=== PATIENT | female | born 1990 | race Hispanic/Latino ===

== ENCOUNTER 2021-08-06 21:00 | Inpatient (IN) | payer MEDICAID, OTHER ==
[2021-08-06 21:46] VITALS: BMI 40.1
[2021-08-06] MEDS: Lactated Ringer's 1,000 ML IV SCH (22:13)
[2021-08-06] MEDS ORDERED: hydrALAZINE 20 MG/ML VIAL SLOW IVP PRN (23:42)
[2021-08-06] MEDS ORDERED: Ibuprofen 800 MG TAB PO PRN (23:42)
[2021-08-06] MEDS ORDERED: Butorphanol Tartrate 1 MG/ML VIAL SLOW IVP PRN (23:42)
[2021-08-06] MEDS ORDERED: Diphenoxylate HCl/Atropine Tablet PO PRN (23:42)
[2021-08-06] MEDS ORDERED: Misoprostol 200 MCG TAB PR PRN (23:42)
[2021-08-06] MEDS ORDERED: Carboprost 250 MCG/ML AMP IM PRN (23:42)
[2021-08-06] MEDS ORDERED: Ondansetron PF 4 MG/2 ML Vial IVP PRN (23:42)
[2021-08-06] MEDS ORDERED: Lidocaine 1% (PF) 30 ML VIAL SC PRN (23:42)
[2021-08-06] MEDS ORDERED: Promethazine HCl 25 MG/ML VIAL IM PRN (23:42)
[2021-08-06] MEDS ORDERED: Acetaminophen 500 MG TAB PO PRN (23:42)
[2021-08-06] MEDS ORDERED: Methylergonovine 0.2 MG/ML VIAL IM PRN (23:42)
[2021-08-06] MEDS ORDERED: HYDROcodone/Acetaminophen 5/325 mg Tablet PO PRN ×2 (23:42)
[2021-08-06] MEDS ORDERED: NS w/ Oxytocin 30 units 500 ML IV SCH ×2 (23:45)
[2021-08-07 00:04] LABS: Hemoglobin 12.2 g/dL (12.0-15.5); Mean Corpuscular HGB CONC 34.6 g/dL (32.0-36.0); Mean Corpuscular Hemoglobin 31.3 pg (27.0-33.0); Mean Corpuscular Volume 90.5 fl (81.6-98.3); Platelet Count 123 10x3/uL (150-450); RBC Distribution Width 14.1 % (11.5-14.5)
[2021-08-07 00:35] LABS: Hep B Surf Ag Non-Reactive S/CO (NonReactive)
[2021-08-07 00:36] LABS: Syphilis Antibody Nonreactive (Nonreactive); Syphilis Antibody Index 0.06 S/CO (<1.00 Non-Reactive)
[2021-08-07 00:37] LABS: HBSAg Index 0.17 S/CO (0-0.99)
[2021-08-07 01:42] LABS: SARS-CoV-2 NAA Rapid Test Not Detected (NotDetected)
[2021-08-07] MEDS: Lactated Ringer's 1,000 ML IV SCH ×2 (07:25→20:04)
[2021-08-07] MEDS ORDERED: Fentanyl 2 mcg/Bup 0.1% Cadd 100 ML ONE (20:55)
[2021-08-07] MEDS ORDERED: Lidocaine 1% PF 10 ML AMP ONE (21:50)
[2021-08-07] MEDS ORDERED: Methylergonovine 0.2 MG/ML VIAL IM PRN (23:51)
[2021-08-07] MEDS ORDERED: Lanolin Ointment 7 GM TUBE TOP PRN (23:51)
[2021-08-07] MEDS ORDERED: Milk Of Magnesia 30 ML UDCUP PO PRN (23:51)
[2021-08-07] MEDS ORDERED: hydrALAZINE 20 MG/ML VIAL SLOW IVP PRN (23:51)
[2021-08-07] MEDS ORDERED: Ondansetron PF 4 MG/2 ML Vial IVP PRN (23:51)
[2021-08-07] MEDS ORDERED: Benzocaine-Menthol 82.5 ML CAN TOP PRN (23:51)
[2021-08-07] MEDS ORDERED: NS w/ Oxytocin 30 units 500 ML IV SCH (23:51)
[2021-08-07] MEDS ORDERED: Bisacodyl 10 MG SUPP PR PRN (23:51)
[2021-08-07] MEDS ORDERED: Misoprostol 200 MCG TAB VAG PRN (23:51)
[2021-08-08] MEDS: Ibuprofen 800 MG TAB PO SCH ×3 (05:44→21:34)
[2021-08-08] MEDS: HYDROcodone/Acetaminophen 5/325 mg Tablet PO PRN ×3 (05:47→20:35)
[2021-08-08] MEDS: Lactated Ringer's 1,000 ML IV SCH (07:12)
[2021-08-08] MEDS: Ferrous Sulfate 325 MG TAB PO SCH ×2 (07:18→14:27)
[2021-08-08] MEDS: Docusate 100 MG CAP PO SCH ×2 (08:52→20:35)
[2021-08-08] MEDS ORDERED: Witch Hazel-Glycerin 1 EACH JAR TOP PRN (09:03)
[2021-08-09] MEDS: Ibuprofen 800 MG TAB PO SCH ×2 (05:14→13:09)
[2021-08-09] MEDS: Ferrous Sulfate 325 MG TAB PO SCH ×2 (07:21→16:43)
[2021-08-09] MEDS: Docusate 100 MG CAP PO SCH (08:29)
[2021-08-09] MEDS: HYDROcodone/Acetaminophen 5/325 mg Tablet PO PRN (12:07)
[2021-08-09 13:27] VITALS: BP 121/79; TEMP 98.4
== END 2021-08-09 17:35 | disposition home or self-care (01) | DRG 807 ==
LOC: CSHLD 21:00 → EEVIPCON 21:00 → CSHPP 08-08 00:36
PROVIDERS: ADMIT Obstetrics & Gynecology; ATTEND Obstetrics & Gynecology
PROC: 10E0XZZ Delivery of Products of Conception, External Approach (ICD-10-PCS; principal; 2021-08-07)
PROC: 10907ZC Drainage of Amniotic Fluid, Therapeutic from Products of Conception, Via Natural or Artificial Opening (ICD-10-PCS; 2021-08-07)
PROC: 3E033VJ Introduction of Other Hormone into Peripheral Vein, Percutaneous Approach (ICD-10-PCS; 2021-08-07)
PROC: 0U7C7ZZ Dilation of Cervix, Via Natural or Artificial Opening (ICD-10-PCS; 2021-08-07)
PROC: 0HQ9XZZ Repair Perineum Skin, External Approach (ICD-10-PCS; 2021-08-07)
DX: O69.81X0 Labor and delivery complicated by cord around neck, without compression, not applicable or unspecified (principal); Z37.0 Single live birth; Z79.899 Other long term (current) drug therapy; O70.0 First degree perineal laceration during delivery; Z20.822 Contact with and (suspected) exposure to COVID-19; Z3A.38 38 weeks gestation of pregnancy; Z79.82 Long term (current) use of aspirin
CPT/HCPCS: 36415; 85027; 86780; 86850; 86900; 86901; 87340; J0595; J2590; J7120; U0002